=== PATIENT | female | born 1955 | race Two or more races ===

== ENCOUNTER 2024-12-26 10:28 | Emergency (ER) | payer OTHER ==
[~2024-12-26] VITALS: Ht 152.4 cm; Wt 89.4 kg
[2024-12-26] MEDS ORDERED: HYDR-4303 PO (12:19)
[2024-12-26 15:38] VITALS: BP 181/100; TEMP 98.2; O2SAT 98
== END 2024-12-26 15:39 | disposition home or self-care (01) ==
LOC: ER 10:35
DX: M79.604 Pain in right leg (principal); I10 Essential (primary) hypertension; Z79.01 Long term (current) use of anticoagulants; Z86.718 Personal history of other venous thrombosis and embolism
CPT/HCPCS: 93971-TC